=== PATIENT | male | born 1965 | race Caucasian/White ===

== ENCOUNTER 2022-05-15 09:51 | Outpatient (CLI) | payer BC, SELFPAY ==
[2022-05-15 18:47] LABS: Kit Draw Collected
== END 2022-05-15 09:52 | disposition home or self-care (01) ==
LOC: ANHGOSHLAB 09:52
PROVIDERS: PCP Internal Medicine; Visit Provider Nurse Practitioner
DX: E03.9 Hypothyroidism, unspecified (principal); E78.5 Hyperlipidemia, unspecified; Z12.5 Encounter for screening for malignant neoplasm of prostate
CPT/HCPCS: 36415

== ENCOUNTER 2022-06-25 21:15 | Emergency (ER) | payer BC, SELFPAY ==
--- NOTE | ~2022-06-25 | XR_ITS ---
EXAMINATION: XR chest 2V Exam Date/Time: 06/25/2022 22:14 DISTRICT CUSTOMS DIRECTOR HISTORY: Hypertension,SOB,heart palpitations x3days. Hx heart disease Comparison: 05/09/2017. RESULT: Lines, tubes, and devices: None. Lungs and pleura: Mild scattered reticulonodular opacities. Right lower lobe calcified granuloma. Cardiomediastinal silhouette: Stable. Calcified left hilar nodes. Other: No acute osseous or upper abdominal finding. IMPRESSION: Pulmonary opacities may represent bronchiolitis, as can be seen with atypical infection, asthma, aspi ration, and small airways disease. Reviewed, dictated and finalized at location K. RICT CUSTOMS DIRECTOR IMPRESSION: Pulmonary opacities may represent bronchiolitis, as can be seen with atypical i nfection, asthma, aspiration, and small airways disease.
--- NOTE | 2022-06-25 21:17 | ECG_ITS ---
Measurements Intervals [place] Rate: 77 P: 52 [place]: 125 QRS: -7 QRSD: 95 T: 65 QT: 357 QTc: 406 Interpretive Statements SINUS RHYTHM WITH SINUS ARRHYTHMIA BASELINE WANDER- V2 NORMAL ECG NO PREVIOUS ECG AVAILABLE FOR COMPARISON Electronically Signed On 06-26-2022 6:37:21 MAIL CENSOR by Augusto Myers D.O.
[2022-06-25 21:21] VITALS: BP 154/97; PULSE 88; RESP 20; TEMP 36.5; O2SAT 96
[2022-06-25 21:35] LABS: Basophils Absolute Auto 0.1 K/mm3 (0.0-0.1); Basophils Percent Auto 0.8 % (0.2-1.2); Eosinophils Absolute Auto 0.3 K/mm3 (0-0.3); Eosinophils Percent Auto 2.7 % (0-4.4); Hematocrit 48.7 % (42.0-52.0); Hemoglobin 16.8 g/dL (14.0-18.0); Immature Granulocyte Absolute 0.02 K/mm3 (0.00-0.031); Immature Granulocyte Percent A 0.2 % (0-0.5); Lymphocytes Absolute Auto 2.83 K/mm3 (0.9-3.2); Lymphocytes Percent Auto 29.5 % (18.3-44.2); Mean Corpuscular HGB Conc 34.5 g/dl (32-36); Mean Corpuscular Hemoglobin 30.7 pg (26-34); Mean Corpuscular Volume 88.9 fl (80-100); Mean Platelet Volume 11.3 fl (7.4-10.4); Monocytes Absolute Auto 0.7 K/mm3 (0.1-0.6); Monocytes Percent Auto 7.4 % (2.6-8.5); Neutrophils Absolute Auto 5.7 K/mm3 (1.3-6.7); Neutrophils Percent Auto 59.4 % (45.5-73.1); Platelet Count Result 249 k/mm3 (150-375); Red Blood Count 5.48 M/mm3 (4.6-6.20); Red Cell Distribution Width 12.7 % (11.5-14.5); White Blood Count 9.6 K/mm3 (4.5-10.0)
[2022-06-25 21:46] LABS: INR 1.1; Prothrombin Time 13.4 Seconds (11.1-14.7)
[2022-06-25 21:52] LABS: Alanine Aminotransferase 37 U/L (6-50); Albumin Level 4.6 g/dL (3.5-5.1); Alkaline Phosphatase 49 U/L (38-126); Anion Gap 6 mmol/L (8-16); Aspartate Amino Transferase 27 U/L (17-59); Bilirubin,Total 0.7 mg/dL (0.2-1.3); Blood Urea Nitrogen 21 mg/dL (9-20); Calcium 9.5 mg/dL (8.4-10.2); Carbon Dioxide 27 mmol/L (22-30); Chloride 101 mmol/L (98-107); Estimated CRCL calculation 94 ml/min; Estimated Glomerular Filt Rate > 60; Glucose 101 mg/dL (65-110); Lipase 583 U/L (23-300); Potassium 3.8 mmol/L (3.4-5.0); Sodium 134 mmol/L (137-145)
[2022-06-25 22:03] LABS: Troponin I < 0.012 ng/mL (0.000-0.034)
[2022-06-25] MEDS: ASPIRIN 81 MG CHEWABLE TABLET 324 MG PO (23:39)
--- NOTE | 2022-06-26 00:46 | ED.GENADULT ---
HPI - General Adult General Chief complaint: Arrhythmia/Palpitations Stated complaint: heart skipping beats Time Seen by Provider: 06/25/22 22:51 History of Present Illness HPI narrative: This is a 57-year-old male presenting to ED with a chief complaint of palpitations. The patient says that 3 days ago he started to feel a tickling/ palpitations in the center of his chest. At that time he then took his blood pressure which was 190/115. He took an extra dose of his lisinopril which eventually caused blood pressure to come down. Patient notes that the palpitations / fluttering in his chest coming go. They usually last 20 seconds at a time. They are worse at night when he is trying to sleep. They are better when he is distracted. They are associated with feelings of doom that he may not wake up in the morning. Patient states he has been under significant amount of stress lately.He denies actual chest pain, shortness of breath, fever chills cough lower extremity edema, history of DVT risk factors. Related Data Home Medications Medication Instructions Recorded Confirmed fexofenadine-pseudoephedrine ER 1 tablet PO DAILY 04/20/19 05/15/22 180 mg-240 mg tablet,ext.release 24 hr (Lisa-D 24 Hour) omeprazole 10 mg capsule,delayed 10 mg PO DAILY 04/20/19 05/15/22 release Allergies Allergy/AdvReac Type Severity Reaction Status Date / Time No Known Allergies Allergy Unverified 05/15/22 09:19 [facility] Past Medical History Medical History Benign brain tumor Removed 1976 Colitis Diverticulitis GERD (gastroesophageal reflux disease) Heart disease Hemorrhoids Hypertension Hypothyroidism Pneumonia Pulmonary nodule Surgical History Surgical History History of partial surgical removal of colon 06/2018 Family History Family History Father Hypertension Family history of diabetes mellitus in first degree relative Mother Family history of osteoporosis Hypertension Father Diabetes mellitus Hypertension Lung cancer Mother Osteoporosis Other Carcinoma of colon Family history of thyroid disease Social History Social History Smoking status: Never smoker Alcohol intake: never Lack of Transportation: No Lack of Food: Never True Current Housing: I Have Housing Concerned About Future Housing: No Difficulty Paying Gas/Electric Bills: No Difficulty Paying for Meds: No Currently Unemployed: No Education: Decline to Answer Difficulty w/ Childcare or Family Care: No Exam Narrative: APPEARANCE: Patient appears anxious. He is accompanied by his . Head: atraumatic. EYES: EOMI, NOSE: Atraumatic NECK: Trachea midline RESPIRATORY: No increased rate of breathing , clear to auscultation bilaterally CARDIOVASCULAR: RRR, no peripheral edema ABDOMINAL: Non-distended, MUSCULOSKELETAl: No obvious deformities NEURO: Alert. Moving 4/4 extremities SKIN:: Warm, dry. Normal color PSYCHIATRIC: Normal affect Course Vital Signs Vital signs: Vital Signs Temperature 97.7 F 06/25/22 21:21 Pulse Rate 88 06/25/22 21:21 Respiratory Rate 20 06/25/22 21:21 Blood Pressure 154/97 H 06/25/22 21:21 Pulse Oximetry 96 06/25/22 21:21 Oxygen Delivery Room Air 06/25/22 21:21 Temperature 97.7 F 06/25/22 21:21 Pulse Rate 88 06/25/22 21:21 Respiratory Rate 20 06/25/22 21:21 Blood Pressure 154/97 H 06/25/22 21:21 Pulse Oximetry 96 06/25/22 21:21 Oxygen Delivery Room Air 06/25/22 21:21 Medical Decision Making [facility] Narrative Medical decision making narrative: -Presentation: this is a 57-year-old male presenting ED with chief complaint of palpitations. Patient was placed on a manager monitoring. Chest pain workup will be obtained. Patient
[2022-06-26 01:00] LABS: Troponin I < 0.012 ng/mL (0.000-0.034)
[2022-06-26 01:33] VITALS: BP 123/79; PULSE 70; RESP 18; TEMP 36.6; O2SAT 99
== END 2022-06-26 01:34 | disposition home or self-care (01) ==
PROVIDERS: Emergency Provider Emergency Medicine; PCP Internal Medicine
DX: I11.9 Hypertensive heart disease without heart failure (principal); E03.9 Hypothyroidism, unspecified; K21.9 Gastro-esophageal reflux disease without esophagitis; Z87.01 Personal history of pneumonia (recurrent); Z90.49 Acquired absence of other specified parts of digestive tract; R00.2 Palpitations
CPT/HCPCS: 36415; 71046; 80053; 83690; 84484; 85025; 85610; 85730; 93005; 99284; A9270

== ENCOUNTER 2022-06-28 09:13 | Emergency (ER) | payer BC, SELFPAY ==
[2022-06-28] VITALS (33 sets, daily range): BP systolic 117–151; BP diastolic 74–116; PULSE 70–95; RESP 12–23; TEMP 36.6; O2SAT 92–100
--- NOTE | ~2022-06-28 | CT_ITS ---
EXAMINATION: CTA chest abdomen pelvis DATE: 06/28/2022 11:02 INDICATION: Chest pain. Aortic dissection. TECHNIQUE: Computed tomographic angiography (CTA) of the chest, abdomen, and pelvis was performed wit h 100 mL Omnipaque-350 intravenous contrast. Automated exposure control and iterative reconstruction technique were employed. The dose-length product was 837.97 mGy-cm. Maximum intensity projection 3D-r econstructions of the aorta and other arteries were constructed by the technologist on a separate wor kstation. COMPARISON: CT abdomen and pelvis 03/20/2018 FINDINGS: CHEST CTA: There is mild emphysema. There is mild dependent atelectasis bilaterally. Calcified left lung nodules and calcified left hilar lymph nodes are consistent with old granulomatous disease. No pleural effus ion. The heart size is normal. There are coronary artery calcifications. No pericardial effusion. The re is a small sliding hiatal hernia. Thoracic aorta is normal in caliber. No aneurysm or dissection. There is mild aortic atherosclerosis. There is no pulmonary embolus. There is mild chronic anterior w edging of multiple thoracic vertebral bodies. There is mild thoracic spondylosis. ABDOMEN AND PELVIS CTA: The liver is normal. Calcifications in the spleen are consistent with old granulomatous disease. The gallbladder is absent. The pancreas and adrenal glands are normal. There are cysts in the kidneys priti suring up to 5.0 cm on the left. Abdominal aorta is normal in caliber. There is mild aortic atheroscl erosis. There is no significant stenosis of celiac axis, superior mesenteric artery, or the renal art eries. Inferior mesenteric artery is not visualized. There is an anastomosis in the sigmoid colon. Th ere is a 4.2 cm exophytic mass of the sigmoid colon at the anastomosis. There is diverticulosis of th e colon without evidence of diverticulitis. The appendix is normal. There are no pathologically enlar ged lymph nodes. There is no free intraperitoneal fluid. There is mild lumbar spondylosis. IMPRESSION: 1. Mild aortic atherosclerosis. No aneurysm or dissection. 2. 4.2 cm exophytic mass of the sigmoid colon at the anastomosis. This may be an unusual appearance o f an otherwise normal anastomosis given that the resection was performed for diverticulitis in September 07. Comparison with early postoperative CT would be useful if available. Consider sigmoidoscopy. 3. Mild emphysema. Reviewed, dictated and finalized at location A. MOTIVE REPAIR TECHNICIAN IMPRESSION: 1. Mild aortic atherosclerosis. No aneurysm or dissection. 2. 4.2 cm exophytic mass of the sigmoid colon at the anastomosis. This may be a n unusual appearance of an otherwise normal anastomosis given that the resectio n was performed for diverticulitis in August 2018. Comparison with early postopera tive CT would be useful if available. Consider sigmoidoscopy. 3. Mild emphysema.
--- NOTE | ~2022-06-28 | XR_ITS ---
Clinical Indication: Chest pain PA and lateral views of the chest: Comparison: 06/25/2022 Findings: The lungs are clear, without evidence of focal consolidation or pleural effusion. Cardiome diastinal silhouette is within normal limits. Bones and soft tissues are unremarkable. Impression: Normal chest. Reviewed, dictated and finalized at [facility]. T RELATIONS RECEPTIONIST Impression: Normal chest.
--- NOTE | 2022-06-28 09:17 | ECG_ITS ---
Measurements Intervals [place] Rate: 97 P: 56 [place]: 125 QRS: -23 QRSD: 84 T: 64 QT: 338 QTc: 431 Interpretive Statements SINUS RHYTHM VENTRICULAR PREMATURE COMPLEXES POSSIBLE LEFT ATRIAL ENLARGEMENT RSR' IN V1 OR V2, PROBABLY NORMAL VARIANT BASELINE ARTIFACT- I, II, AVR, AVL, AVF, V2 BORDERLINE ECG NO PREVIOUS ECG AVAILABLE FOR COMPARISON Electronically Signed On 06-28-2022 10:19:27 TOURIST INFORMATION OFFICER by Augusto Myers D.O.
--- NOTE | 2022-06-28 09:41 | PC.NURSE ---
Patient off unit to radiology.
[2022-06-28 09:47] LABS: Prothrombin Time 13.2 Seconds (11.1-14.7)
[2022-06-28 09:48] LABS: Basophils Absolute Auto 0.1 K/mm3 (0.0-0.1); Basophils Percent Auto 0.5 % (0.2-1.2); Eosinophils Absolute Auto 0.1 K/mm3 (0-0.3); Eosinophils Percent Auto 0.7 % (0-4.4); Hematocrit 52.8 % (42.0-52.0); Hemoglobin 18.8 g/dL (14.0-18.0); Immature Granulocyte Absolute 0.04 K/mm3 (0.00-0.031); Immature Granulocyte Percent A 0.3 % (0-0.5); Lymphocytes Absolute Auto 2.33 K/mm3 (0.9-3.2); Lymphocytes Percent Auto 15.5 % (18.3-44.2); Mean Corpuscular HGB Conc 35.6 g/dl (32-36); Mean Corpuscular Hemoglobin 31.2 pg (26-34); Mean Corpuscular Volume 87.6 fl (80-100); Mean Platelet Volume 11.7 fl (7.4-10.4); Monocytes Percent Auto 6.7 % (2.6-8.5); Neutrophils Absolute Auto 11.5 K/mm3 (1.3-6.7); Neutrophils Percent Auto 76.3 % (45.5-73.1); Partial Thromboplastin Time 30.2 SECONDS (22.3-36.8); Platelet Count Result 278 k/mm3 (150-375); Red Blood Count 6.03 M/mm3 (4.6-6.20); Red Cell Distribution Width 12.4 % (11.5-14.5)
[2022-06-28 09:49] LABS: Alanine Aminotransferase 35 U/L (6-50); Albumin Level 4.8 g/dL (3.5-5.1); Alkaline Phosphatase 56 U/L (38-126); Anion Gap 9 mmol/L (8-16); Aspartate Amino Transferase 25 U/L (17-59); Bilirubin,Total 0.7 mg/dL (0.2-1.3); Blood Urea Nitrogen 20 mg/dL (9-20); Calcium 9.6 mg/dL (8.4-10.2); Carbon Dioxide 26 mmol/L (22-30); Chloride 106 mmol/L (98-107); Estimated CRCL calculation 84 ml/min; Estimated Glomerular Filt Rate > 60; Glucose 123 mg/dL (65-110); Lipase 202 U/L (23-300); Potassium 4.2 mmol/L (3.4-5.0); Sodium 141 mmol/L (137-145)
[2022-06-28 10:00] LABS: Troponin I < 0.012 ng/mL (0.000-0.034)
--- NOTE | 2022-06-28 10:39 | ED.GENADULT ---
HPI - General Adult General Chief complaint: Chest Pain Stated complaint: heart palp/chest pressure/htn/sob Time Seen by Provider: 06/28/22 09:25 History of Present Illness HPI narrative: 57-year-old male presented to the emergency department for evaluation of intermittent chest pain and heart palpitations. Patient was evaluated in the emergency department on Friday and had a negative work-up at that time. Patient was scheduled to have follow-up with his primary care physician this morning but began having worsening symptoms last night and his primary care physician told him to be evaluated emergency department. Patient states his symptoms are intermittent patient currently denies any chest pain or shortness of breath. Patient denies any current palpitations. Patient does have a prior history of hypertension, hypothyroidism and high cholesterol. Also has prior history of diverticulitis and partial colectomy Related Data Home Medications Medication Instructions Recorded Confirmed fexofenadine-pseudoephedrine ER 1 tablet PO DAILY 04/20/19 05/15/22 180 mg-240 mg tablet,ext.release 24 hr (Lisa-D 24 Hour) omeprazole 10 mg capsule,delayed 10 mg PO DAILY 04/20/19 05/15/22 release Allergies Allergy/AdvReac Type Severity Reaction Status Date / Time No Known Allergies Allergy Unverified 06/28/22 09:32 Review of Systems Review of Systems: CONSTITUTIONAL: Denies fever, chills, or sweats. EYES: Denies visual changes, redness, or discharge. ENT: Denies rhinorrhea, congestion, sore throat, or otalgia. CARDIOVASCULAR: See HPI RESPIRATORY: Denies cough or dyspnea. GASTROINTESTINAL: Denies abdominal pain, nausea, vomiting, or diarrhea. GENITOURINARY: Denies dysuria or hematuria. SKIN: Denies rash or itching. MUSCULOSKELETAL: Denies back pain, joint pain, or myalgia. NEUROLOGIC: Denies headache, numbness, or weakness. [facility] Past Medical History Medical History Benign brain tumor Removed 1977 Colitis Diverticulitis GERD (gastroesophageal reflux disease) Heart disease Hemorrhoids Hypertension Hypothyroidism Pneumonia Pulmonary nodule Surgical History Surgical History History of partial surgical removal of colon 06/2018 Family History Family History Father Hypertension Family history of diabetes mellitus in first degree relative Mother Family history of osteoporosis Hypertension Father Diabetes mellitus Hypertension Lung cancer Mother Osteoporosis Other Carcinoma of colon Family history of thyroid disease Social History Social History Smoking status: Never smoker Alcohol intake: never Lack of Transportation: No Lack of Food: Never True Current Housing: I Have Housing Concerned About Future Housing: No Difficulty Paying Gas/Electric Bills: No Difficulty Paying for Meds: No Currently Unemployed: No Education: Decline to Answer Difficulty w/ Childcare or Family Care: No Exam Narrative: APPEARANCE: Well appearing, no pain, no distress, well-nourished. HEAD: normocephalic, atraumatic. EYES: PERRLA/EOMI, conjunctivae clear. NOSE: Normal no drainage NECK: Supple. No adenopathy, no masses. RESPIRATORY: Airway patent, respirations nonlabored. Clear to auscultation bilaterally, no rales, rhonchi, wheezing. CARDIOVASCULAR: Regular rate and rhythm without murmurs rubs or gallops. ABDOMINAL: Soft, nontender, nondistended, normal bowel sounds MUSCULOSKELETAL: Moves all extremities. Strength/ROM intact, No edema, No calf tenderness. NEURO: Alert. Cranial nerves II through XII intact. Grossly intact SKIN: Warm, dry. Normal Color Course Course Emergency Course: 57-year-old male with intermittent chest pain. Patient was afebrile but does have a leukocyt
--- NOTE | 2022-06-28 10:57 | PC.NURSE ---
Patient off unit to CT.
[2022-06-28] MEDS: LORazepam INJ (*CRX) 2 MG/ML VIAL 1 MG IV PUSH (11:01)
[2022-06-28 11:28] LABS: Influenza A QL RT-PCR Negative (Negative); Influenza B QL RT-PCR Negative (Negative); RSV RNA, RT-PCR Negative (Negative); SARS-CoV-2 RNA PCR Negative
[2022-06-28 12:44] LABS: Troponin I < 0.012 ng/mL (0.000-0.034)
--- NOTE | 2022-07-02 16:18 | WPDHOLTEREM ---
Holter/Event Monitor Holter/Event Monitor Date of procedure: 06/28/22 Holter/Event Procedure: 48 Hr Holter Monitor Indications: Heart palpitations Conclusion: 1. 48 hour holter monitor on 06/28/22. 2. Underlying rhythm is sinus rhythm. HR range 52-138 bpm; average HR 85 bpm. 3. There are 13 premature supraventricular complexes. No supraventricular tachycardia. 4. There are 3,530 premature ventricular complexes, 114 ventricular couplets, 1 ventricular triplet, 13 ventricular bigeminy and 68 ventricular trigeminy. No ventricular tachycardia. 5. No sinoatrial or atrioventricular blocks. No significant pauses greater than 2 seconds. 6. Patient reports symptoms of chest pain, palpitations which demonstrate sinus rhythm, HR range 69-105 bpm and 1 ventricular couplet.
== END 2022-06-28 14:25 | disposition home or self-care (01) ==
PROVIDERS: Emergency Provider Emergency Medicine; PCP Internal Medicine
DX: R00.2 Palpitations (principal); R07.9 Chest pain, unspecified; Z20.822 Contact with and (suspected) exposure to COVID-19; K21.9 Gastro-esophageal reflux disease without esophagitis; I10 Essential (primary) hypertension; E03.9 Hypothyroidism, unspecified
CPT/HCPCS: 36415; 71046; 71275; 74174; 80053; 83690; 84484; 85025; 85610; 85730; 87637; 93005; 93225; 93226; 96374; 99284; J2060; Q9967

== ENCOUNTER 2022-07-04 15:13 | Outpatient (CLI) | payer BC, SELFPAY ==
[2022-07-04 19:35] LABS: Free T4 Free Thyroxine 1.25 ng/mL (0.78-2.19)
[2022-07-04 20:01] LABS: Appearance Urine Slightly Cloudy (Clear); Bilirubin Urine Negative (Negative); Blood Urine Trace-lysed (Negative); Color Urine Yellow (Yellow); Glucose Urine UA Negative (Negative); Ketones Urine Negative (Negative); Leukocyte Esterase Ur Negative LEU/UL (Negative); Nitrate Urine Negative (Negative); Protein Urine Negative (Negative); Specific Grav Ur >= 1.030 (1.001-1.035); Urobilinogen Urine 0.2 mg/dL (<2.0); pH Urine 5.5 (5.0-9.0)
[2022-07-04 20:13] LABS: Add Urine Microscopic? YES
[2022-07-04 20:14] LABS: Calcium Oxalate Crystals Urine Present /hpf; Squamous Epithelial Cell Urine Rare /hpf (Few); WBC Urine 0-3 /hpf (0-3)
[2022-07-04 20:15] LABS: Bacteria Urine Trace /hpf
[2022-07-04 20:41] LABS: Basophils Absolute Auto 0.1 K/mm3 (0.0-0.1); Basophils Percent Auto 0.9 % (0.2-1.2); Eosinophils Absolute Auto 0.3 K/mm3 (0-0.3); Eosinophils Percent Auto 3.3 % (0-4.4); Hematocrit 48.3 % (42.0-52.0); Hemoglobin 16.8 g/dL (14.0-18.0); Immature Granulocyte Absolute 0.03 K/mm3 (0.00-0.031); Immature Granulocyte Percent A 0.3 % (0-0.5); Lymphocytes Percent Auto 28.1 % (18.3-44.2); Mean Corpuscular HGB Conc 34.8 g/dl (32-36); Mean Corpuscular Hemoglobin 30.3 pg (26-34); Mean Platelet Volume 12.4 fl (7.4-10.4); Monocytes Absolute Auto 0.7 K/mm3 (0.1-0.6); Neutrophils Absolute Auto 5.5 K/mm3 (1.3-6.7); Neutrophils Percent Auto 59.4 % (45.5-73.1); Platelet Count Result 248 k/mm3 (150-375); Red Blood Count 5.55 M/mm3 (4.6-6.20); Red Cell Distribution Width 12.4 % (11.5-14.5); White Blood Count 9.3 K/mm3 (4.5-10.0)
[2022-07-10 05:47] LABS: Triiodothyronine T3 Free 3.3 pg/mL (2.3-4.2)
== END 2022-07-04 15:14 | disposition home or self-care (01) ==
LOC: ANHGOSHLAB 15:14
PROVIDERS: PCP Internal Medicine; Visit Provider Nurse Practitioner
DX: R00.2 Palpitations (principal); E03.9 Hypothyroidism, unspecified; R30.0 Dysuria
CPT/HCPCS: 36415; 81001; 84439; 84443; 84481; 85025

== ENCOUNTER 2022-08-02 10:12 | Outpatient (CLI) | payer BC, SELFPAY ==
--- NOTE | 2022-08-02 10:17 | EST_ITS ---
Patient Info Name: Tariq Westbrook Age: 57 years : 1965 Gender: Male Ht: 70 in Wt: 200 lbs BSA: 2.14 m2 HR: 72 bpm BP: 132 / 98 mmHg Heart Rhythm: Sinus Rhythm Exam Date: 08/02/2022 10:28 AM Exam Location: [facility] Stress Patient Status: Outpatient Admit Date: 08/02/2022 Staff Ordering Physician: Ashley Hyman NP Attending Provider: Ashley Hyman NP Exercise Technologist: Kayla Amaya CT Exam Type: CA stress test treadmill Study Info Indications R07.9 - Chest pain, unspecified A treadmill exercise stress test was performed. Summary 1. Maximal treadmill stress ECG study achieving 89% of age predicted maximum heart rate and 6.5 METS at peak exercise. 2. Poor exercise capacity for age. 3. Occasional stress-induced PVCs and PACs. 4. No stress-induced chest pain. 5. Normal heart rate and blood pressure response to exercise albeit hypertensive at baseline. 6. Nondiagnostic exercise-induced upsloping ST segment deviation which did not meet strict criteria for reversible myocardial ischemia. 7. [place]once treadmill score +4 indicating intermediate risk for adverse cardiovascular events for the next 5 years. Clinical correlation advised. Recommendations * Consider repeat study with imaging to improve sensitivity specificity for myocardial ischemia if clinically indicated. Protocol: [place] [facility] ECG Details Stage: REST Duration (min): 1 min : 1 sec Speed (mph): 0.0 Grade (%): 0 HR (bpm): 81 SBP (mmHg): 132 DBP (mmHg): 98 METS: --- Stage: REST Duration (min): 15 min : 1 sec Speed (mph): 0.0 Grade (%): 0 HR (bpm): 81 SBP (mmHg): 132 DBP (mmHg): 98 METS: --- Stage: STAGE 1 Duration (min): 1 min : 0 sec Speed (mph): 1.7 Grade (%): 10 HR (bpm): 109 SBP (mmHg): 132 DBP (mmHg): 98 METS: --- Stage: STAGE 1 Duration (min): 2 min : 0 sec Speed (mph): 1.7 Grade (%): 10 HR (bpm): 123 SBP (mmHg): 132 DBP (mmHg): 98 METS: --- Stage: STAGE 1 Duration (min): 3 min : 0 sec Speed (mph): 1.7 Grade (%): 10 HR (bpm): 136 SBP (mmHg): 195 DBP (mmHg): 106 METS: --- Stage: STAGE 2 Duration (min): 1 min : 0 sec Speed (mph): 2.5 Grade (%): 12 HR (bpm): 146 SBP (mmHg): 195 DBP (mmHg): 106 METS: --- Stage: STAGE 2 Duration (min): 1 min : 2 sec Speed (mph): 2.5 Grade (%): 12 HR (bpm): 147 SBP (mmHg): 195 DBP (mmHg): 106 METS: --- Stage: RECOVERY Duration (min): 0 min : 57 sec Speed (mph): 0.0 Grade (%): 0 HR (bpm): 121 SBP (mmHg): 167 DBP (mmHg): 102 METS: --- Stage: RECOVERY Duration (min): 1 min : 57 sec Speed (mph): 0.0 Grade (%): 0 HR (bpm): 111 SBP (mmHg): 167 DBP (mmHg): 102 METS: --- Stage: RECOVERY Duration (min): 2 min : 57 sec Speed (mph): 0.0 Grade (%): 0 HR (bpm): 101 SBP (mmHg): 157 DBP (mmHg): 101 METS: --- Stage: RECOVERY Duration (min)
== END 2022-08-02 10:13 | disposition home or self-care (01) ==
LOC: ANHCARD 10:15
PROVIDERS: PCP Internal Medicine; Visit Provider Nurse Practitioner
DX: R07.9 Chest pain, unspecified (principal)
CPT/HCPCS: 93017

== ENCOUNTER 2023-07-17 09:39 | Outpatient (CLI) | payer BC, SELFPAY ==
[2023-07-17 12:18] LABS: Basophils Absolute Auto 0.1 K/mm3 (0.0-0.1); Basophils Percent Auto 0.8 % (0.2-1.2); Eosinophils Absolute Auto 0.4 K/mm3 (0-0.3); Eosinophils Percent Auto 4.4 % (0-4.4); Hematocrit 52.7 % (42.0-52.0); Hemoglobin 17.4 g/dL (14.0-18.0); Immature Granulocyte Absolute 0.02 K/mm3 (0.00-0.031); Immature Granulocyte Percent A 0.2 % (0-0.5); Lymphocytes Absolute Auto 2.76 K/mm3 (0.9-3.2); Lymphocytes Percent Auto 29.1 % (18.3-44.2); Mean Corpuscular Hemoglobin 30.2 pg (26-34); Mean Corpuscular Volume 91.5 fl (80-100); Mean Platelet Volume 12.6 fl (7.4-10.4); Monocytes Absolute Auto 0.8 K/mm3 (0.1-0.6); Monocytes Percent Auto 7.9 % (2.6-8.5); Neutrophils Absolute Auto 5.4 K/mm3 (1.3-6.7); Neutrophils Percent Auto 57.6 % (45.5-73.1); Platelet Count Result 246 k/mm3 (150-375); Red Blood Count 5.76 M/mm3 (4.6-6.20); Red Cell Distribution Width 12.4 % (11.5-14.5); White Blood Count 9.5 K/mm3 (4.5-10.0)
[2023-07-17 12:36] LABS: Alanine Aminotransferase 47 U/L (6-50); Albumin Level 4.4 g/dL (3.5-5.1); Alkaline Phosphatase 61 U/L (38-126); Anion Gap 5 mmol/L (4-12); Aspartate Amino Transferase 44 U/L (17-59); Bilirubin,Total 0.8 mg/dL (0.2-1.3); Blood Urea Nitrogen 13 mg/dL (9-20); Calcium 9.4 mg/dL (8.4-10.2); Carbon Dioxide 26 mmol/L (22-30); Chloride 105 mmol/L (98-107); Cholesterol 103 mg/dL (0-200); Estimated Glomerular Filt Rate > 60; Glucose 99 mg/dL (65-110); HDL Direct 31 mg/dL; Potassium 4.6 mmol/L (3.4-5.0); Sodium 136 mmol/L (137-145); Triglycerides 93 mg/dL (<150)
[2023-07-17 12:51] LABS: LDL Cholesterol Direct 62 mg/dL
[2023-07-17 12:53] LABS: Free T4 Free Thyroxine 1.35 ng/mL (0.78-2.19)
[2023-07-17 13:08] LABS: Prostate Specific Antigen 0.9 ng/mL (< OR = 4.0)
[2023-07-22 14:11] LABS: Triiodothyronine T3 Free 3.2 pg/mL (2.3-4.2)
== END 2023-07-17 09:40 | disposition home or self-care (01) ==
LOC: ANHGOSHLAB 09:40
PROVIDERS: PCP Internal Medicine; Visit Provider Nurse Practitioner
DX: E03.9 Hypothyroidism, unspecified (principal); E78.5 Hyperlipidemia, unspecified; I10 Essential (primary) hypertension; Z12.5 Encounter for screening for malignant neoplasm of prostate
CPT/HCPCS: 36415; 80053; 80061; 84153; 84439; 84443; 84481; 85025; G0103